=== PATIENT | male | born 1960 | race Caucasian/White ===

== ENCOUNTER 2021-04-27 07:49 | Outpatient (CLI) | payer OTHER, SELFPAY ==
--- NOTE | 2021-04-27 08:11 | CT_ITS ---
WS: [id number] CT scan of the chest without IV contrast, additional two-dimensional coronal and sagittal reconstruct ion was performed. 04/27/2021 Clinical Data: PULMONARY NODULE, SMOKER Comparison: CT chest, 03/21/2009. DLP: 861.[address] scans at [facility] use at least one of these dose optimization techniques: automat ed exposure control; mA and/or kV adjustment per patient size (includes targeted exams where dose is matched to clinical indication); or iterative reconstruction. Findings: No nodules, masses or effusions are seen. The heart size is normal with no pericardial effusion. No p neumonia or pneumothorax is seen. The pulmonary arterial system and thoracic aorta demonstrate no abn ormalities or dilatations. The trachea bifurcates normally into the bronchi. There is minimal axillar y and no significant mediastinal adenopathy. There is a small hiatal hernia. The bones of the thorax are normal. The upper abdomen demonstrates no abnormalities. CT/CT chest wo con [id number] Impression: Negative CT scan of the chest.
== END 2021-04-27 07:50 | disposition home or self-care (01) ==
PROVIDERS: Visit Provider Family Medicine
DX: F17.210 Nicotine dependence, cigarettes, uncomplicated; R91.1 Solitary pulmonary nodule
CPT/HCPCS: 71250

== ENCOUNTER 2021-09-15 16:03 | Emergency (ER) | payer OTHER, SELFPAY ==
[2021-09-15 16:07] VITALS: BP 145/82; PULSE 96; RESP 18; TEMP 38.3; O2SAT 91; BMI 28.0
--- NOTE | 2021-09-15 16:14 | W.ED.GENADLT ---
HPI - General Adult General: Chief complaint: Fever Stated complaint: Cough, Fever, Aches, Pains Time Seen by Provider: 09/15/21 16:13 History of Present Illness: HPI narrative: 61-year-old male with no significant past medical history presenting to the emergency room with 1 day of diarrhea and cough. Patient tells me that she was traveling to [place] when he first developed cough yesterday. Patient has noticed a fever 106 degrees at home. Since then, patient took some OTC antipyretic with improvement to a fever to 101. Patient reports generalized weakness,, denies chest pain, shortness of breath, palpitation, nausea/vomiting, abdominal pain, complaints at this time. Denies any melena or hematochezia. Onset: 1 day ago Duration:1 day Location:home Severity: moderate Review of Systems Narrative: Constitutional: +fever, +chills. HEENT: No vision changes CV: No chest pain, no palpitations PULM: +cough, no dyspnea. GI: No abdominal pain, -N/-V/+D. : No dysuria MSKEL: No muscle pain SKIN: No new rashes, no lesions. NEURO: No headache, no focal weakness. HEME: No visible bruises PSYCH: Normal mood Physical Exam Narrative: EXAM NARRATIVE: Head: Atraumatic Eyes: PERRL, conjunctiva without injection ENT: Mucous membrane moist NECK: Supple, ROM intact LUNGS: LCTAB, no crackles/rhonchi CV: RRR ABDOMEN: Soft, nontender in all quadrants EXTREMITY: Normal ROM SKIN: No rash or erythema NEURO: Awake and alert, no focal motor deficits PSYCH: Normal mood and affect Course Vital Signs: Vital signs: Vital Signs Temperature 99.4 F 09/15/21 18:25 Pulse Rate 72 09/15/21 18:38 Respiratory Rate 15 09/15/21 18:38 Blood Pressure 112/70 09/15/21 18:25 Pulse Oximetry 95 09/15/21 18:38 MDM - General Adult MDM Narrative: Medical decision making narrative: 61-year-old male presenting to the emergency room with cough, diarrhea, fever x1 day. Exam, patient febrile to 101 degrees. Patient has no signs of increased work of breathing, O2 sat within normal limit Workup: CBC, BMP, Covid antigen/PCR, XR chest Intervention: IVF, Tylenol 1gm, observation On reassessment, patient appears to be symptomatically improved after IVF. Fever improved with Tylenol. In the ER, patient tolerated p.o. without difficulty. Covid swab positive. XR negative. Pulse ox wnl. Given patient strict follow-up with PCP. Patient does not criteria for MCA. Patient has a power portable pulse ox at home I have given patient strict return precaution for any signs of respiratory failure, O2 sat less than 90%, or any new concerning complaints. Disposition: Discharge. Patient counseled regarding diagnostic impression, treatment plan. Patient given ED strict return precautions to return for continuation, worsening, or development of new symptoms. Instructed to f/u w/ PCP regarding symptoms today. Patient verbalized understanding. Lab Data: Labs: Lab Results 09/15/21 09/15/21 09/15/21 16:52 16:52 17:00 WBC 8.9 10^3/uL 10^3/ uL (4.0-10.0) RBC 4.43 10^6/uL 10^6 /uL (4.1-5.3) Hgb 13.3 g/dL g/dL (11.7-16.6) Hct 39.5 % L % (42.0-52.0) MCV 89.2 fl fl (80-94) MCH 30.0 pg pg (28.0-34.0) MCHC 33.7 g/dL g/dL (30.0-36.0) RDW 12.4 % % (12.1-15.1) Plt Count 264 10^3/cmm 10^3 /cmm (130-400) MPV 9.7 fL fL (7.4-10.4) Neut % (Auto) 81.1 % % Lymph % (Auto) 10.1 % % Reynolds % (Auto) 7.5 % % Eos % (Auto) 0.6 % % Baso % (Auto) 0.4 % % Neut # (Auto) 7.21 10^3/uL 10^3 /uL (1.8-7.7) Lymph # (Auto) 0.9 10^3/uL 10^3/ uL (0.8-4.8) Reynolds # (Auto) 0.7 10^3/uL 10^3/ uL (0.2-0.9) Eos # (Auto) 0.1 10^3/uL 10^3/ uL (0.0-0.8) Baso # (Auto) 0.0 10^3/uL 10^3/ uL (0.0-0.1) Nucleated RBC % (a uto) 0 % % Nucleated RBCs # 0.0 /100WBC /100W BC Sodium 141 mmol/L mmol/L (136-145) Potassium 3.6 mmol/L mmol/L (3.5-5.1) Chloride 104 mmol/L mmol/L (98-107) Carbon Dioxide 21 mmol/L L mmol/ L (22-29) Anion Gap 19.6 H (5-19) BUN 15 mg/dL mg/dL (8-23) Creatinine 1.1 mg/dL mg/dL (0.7-1.2) GFR Calculation 67.8 mL/min L mL/ min (90-130) Glucose 110 mg/dL mg/dL (65-115) Calculated Osmolal ity 293 mOsm/kg mOsm/ kg (285-295) Calcium 8.2 mg/dL L mg/dL (8.5-10.5) Nasal/Oral COVID-1 9 PCR Influenza Type A A g Negative (Negative) Influenza Type B A g Negative (Negative) SARS-CoV-2 Ag (Rap id) 09/15/21 09/15/21 17:00 17:00 WBC RBC Hgb Hct MCV MCH MCHC RDW Plt Count MPV Neut % (Auto) Lymph % (Auto) Reynolds % (Auto) Eos % (Auto) Baso % (Auto) Neut # (Auto) Lymph # (Auto) Reynolds # (Auto) Eos # (Auto) Baso # (Auto) Nucleated RBC % (a uto) Nucleated RBCs # Sodium Potassium Chloride Carbon Dioxide Anion Gap BUN Creatinine GFR Calculation Glucose Calculated Osmolal ity Calcium Nasal/Oral COVID-1 9 PCR Cancelled Influenza Type A A g Influenza Type B A g SARS-CoV-2 Ag (Rap id) Positive H (Negative) Imaging Data^: Other Imaging: Radiologist's impression: [address] [id number] ReportSigned Patient: Scar Lucero AUnit #: [id number]: [id number]#:[id number]/Sex: 61 / MADM Date: 09/15/21Loc: ERRoom/Bed:Attending Dr: Ordering Provider/Ordering MD: Miles Steele MD Date of Service: 09/15/21 Procedure(s): XR chest 1V portable [id number] Accession Number(s): [id number] Report Number: [id number] PROCEDURE INFORMATION: Exam: XR Chest Exam date and time: 09/15/2021 4:23 PM Age: 61 years old Clinical indication: Dyspnea TECHNIQUE: Imaging protocol: XR of the chest. Views: 1 view. COMPARISON: CT chest [facility] [id number] 04/27/2021 8:18 AM FINDINGS: Lungs: Unremarkable. No consolidation. Pleural spaces: Unremarkable. No pleural effusion. No pneumothorax. Heart/Mediastinum: Unremarkable. No cardiomegaly. Bones/joints: Unremarkable. XR/XR chest 1V portable [id number] IMPRESSION: No acute findings. Radiation Dose CTDIVOL = (mGy): DLP = (mGy-cm) Dictated By:Jeremy Alas MDSigned By:Jeremy Alas MDSigned Date/Time:09/15/21 1833DD/ 1623 Discharge Plan Discharge Patient Disposition: Home Clinical Impression: Cough, Diarrhea Condition: Stable Prescriptions: New acetaminophen 500 mg tablet 500 mg PO Q6H PRN (Reason: pain) 5 Days Qty: 20 RF: 0 Discharge Orders: Discharge ED (Routine); Ordered 09/15/21 Ordered By: Miles Steele Referrals: Jimenez Mullins MD [Primary Care Provider] - Discharge Diet: Advance as tolerated Discharge Activity: Resume usual activity Patient Instructions: COVID-19 (Coronavirus Disease 2019) (ED) Activity Restrictions/Additional Instructions: Come back to the emergency room if your symptoms worsen, have any shortness of breath, fever/chills, dehydration, inability tolerate p.o., any difficulty breathing, or any new or concerning complaints. Coding Level of Care Code ED Weighing Station Operator for Tiffanie Woodruff
--- NOTE | 2021-09-15 16:23 | XRR_ITS ---
PROCEDURE INFORMATION: Exam: XR Chest Exam date and time: 09/15/2021 4:23 PM Age: 61 years old Clinical indication: Dyspnea TECHNIQUE: Imaging protocol: XR of the chest. Views: 1 view. COMPARISON: CT chest con [id number] 04/27/2021 8:18 AM FINDINGS: Lungs: Unremarkable. No consolidation. Pleural spaces: Unremarkable. No pleural effusion. No pneumothorax. Heart/Mediastinum: Unremarkable. No cardiomegaly. Bones/joints: Unremarkable. XR/XR chest 1V portable [id number] IMPRESSION: No acute findings. Radiation Dose CTDIVOL = (mGy): DLP = (mGy-cm)
[2021-09-15] MEDS: sodium chloride 0.9% 1,000 ML 999 ML IV (16:59)
[2021-09-15] MEDS: acetaminophen 500 mg Tablet 1000 MG PO (17:00)
[2021-09-15 17:01] VITALS: BP 122/74; PULSE 82; RESP 16; O2SAT 93
[2021-09-15 17:10] LABS: Basophils % 0.4 %; Eosinophils # 0.1 10^3/uL (0.0-0.8); Eosinophils % 0.6 %; Hematocrit 39.5 % (42.0-52.0); Hemoglobin 13.3 g/dL (11.7-16.6); Lymphocytes # 0.9 10^3/uL (0.8-4.8); Lymphocytes % 10.1 %; Mean Corpuscular HGB Conc 33.7 g/dL (30.0-36.0); Mean Corpuscular Volume 89.2 fl (80-94); Mean Platelet Volume 9.7 fL (7.4-10.4); Monocytes # 0.7 10^3/uL (0.2-0.9); Monocytes % 7.5 %; Neutrophils # 7.21 10^3/uL (1.8-7.7); Neutrophils % 81.1 %; Nucleated Red Blood Cells % 0 %; Platelet Count 264 10^3/cmm (130-400); Red Blood Count 4.43 10^6/uL (4.1-5.3); Red Cell Distribution Width 12.4 % (12.1-15.1); White Blood Count 8.9 10^3/uL (4.0-10.0)
[2021-09-15 17:31] LABS: Anion Gap 19.6 (5-19); Blood Urea Nitrogen 15 mg/dL (8-23); Calcium 8.2 mg/dL (8.5-10.5); Carbon Dioxide 21 mmol/L (22-29); Chloride 104 mmol/L (98-107); Glomerular Filtration Rate 67.8 mL/min (90-130); Glucose 110 mg/dL (65-115); Osmolality Calculated 293 mOsm/kg (285-295); Potassium 3.6 mmol/L (3.5-5.1); Sodium 141 mmol/L (136-145)
[2021-09-15 18:09] LABS: Influenza A by IFA Negative (Negative); Influenza B by IFA Negative (Negative); SARS Covid-2 Antigen Positive (Negative)
[2021-09-15 18:25] VITALS: BP 112/70; PULSE 72; RESP 16; TEMP 37.4; O2SAT 94
[2021-09-15 18:38] VITALS: PULSE 72; RESP 15; O2SAT 95
== END 2021-09-15 18:40 | disposition home or self-care (01) ==
PROVIDERS: Emergency Provider Emergency Medicine; PCP Family Medicine
DX: U07.1 COVID-19 (principal)
CPT/HCPCS: 71045; 80048; 85025; 87426; 87804; 96360; 99283; J7030

== ENCOUNTER 2021-09-19 11:28 | Outpatient (CLI) | payer OTHER, SELFPAY ==
[2021-09-19 12:08] VITALS: BP 128/74; PULSE 50; RESP 18; TEMP 36.7; O2SAT 96; BMI 28.0
[2021-09-19 12:22] VITALS: BP 113/72; PULSE 49; RESP 18; TEMP 36.5; O2SAT 98
[2021-09-19 13:30] VITALS: BP 127/81; PULSE 52; RESP 18; TEMP 36.7
--- NOTE | 2021-09-19 13:31 | PC.NURSE ---
patient denies shortness of breath, bilateral lung sounds clear.
== END 2021-09-19 11:29 | disposition home or self-care (01) ==
PROVIDERS: PCP Family Medicine; Visit Provider Family Medicine
DX: U07.1 COVID-19 (principal)
CPT/HCPCS: 96365

== ENCOUNTER → 2022-10-24 15:33 | Outpatient (BNVA) | payer OTHER, SELFPAY | PROVIDERS: PCP Family Medicine; Visit Provider Nurse Practitioner Family | DX: J11.1 Influenza due to unidentified influenza virus with other respiratory manifestations (principal) | CPT/HCPCS: 87400; 87426 ==

== ENCOUNTER → 2022-12-19 08:50 | Outpatient (BNVA) | payer OTHER, SELFPAY | PROVIDERS: PCP Family Medicine; Visit Provider Family Medicine | DX: R06.00 Dyspnea, unspecified (principal); Z00.00 Encounter for general adult medical examination without abnormal findings; Z87.891 Personal history of nicotine dependence; R35.0 Frequency of micturition | CPT/HCPCS: 80053; 80061; 84153 ==

== ENCOUNTER → 2023-01-13 14:43 | Outpatient (BNVA) | payer OTHER, SELFPAY | PROVIDERS: PCP Family Medicine; Visit Provider Family Medicine | DX: L98.9 Disorder of the skin and subcutaneous tissue, unspecified (principal) | CPT/HCPCS: 88304 ==

== ENCOUNTER 2023-01-23 06:37 | Outpatient (CLI) | payer OTHER, SELFPAY ==
[2023-01-23 06:43] VITALS: BMI 27.4
--- NOTE | 2023-01-23 06:43 | ECG_ITS ---
[facility] Test Date: 2023-01-23 Pat Name: Scar Lucero Department: Room: Gender: Male Sole Buffer: Mallory Valero : 1960 Requested By: Jimenez Cartagena Order Number: [id number] MD: Cullen Mcadams M.D. Interpretive Statements NAME OF STUDY: EXERCISE SESTAMIBI STRESS TEST INDICATION: [Dyspnea on Exertion, ] EXERCISE DATA: The patient was exercised by Andrew protocol. Baseline heart rate was 44 beats per minute. Baseline blood pressure was 118/65 millimeters of mercury. Target heart rate was 133 beats per minute. Maximum heart rate achieved was 138, which was 103% of the target heart rate. Maximum blood pressure was 199/92 millimeters of mercury. Total exercise time was 11 minutes 43 seconds. Maximum METs achieved was 8013.5. The reason for ending the test was maximal effort achieved. The patient complained of shortness of breath during the stress test, which then resolved at the end of the test. ELECTROCARDIOGRAM: BASELINE: Showed sinus rhythm, normal axis, no significant ST-T changes at the baseline noted. [] EXERCISE: At the peak exercise level, [] No significant ST-T changes suggestive of ischemia noted. [] RECOVERY: During the recovery period, heart rate dropped appropriately. No significant ST-T changes in the recovery suggestive of ischemia noted. [] CONCLUSION: 1. Exercise capacity excellent 2. Heart rate response was appropriate 3. Blood pressure response was appropriate 4. Symptoms not suggestive of ischemia. 5. Electrocardiogram portion of the stress test was not suggestive of ischemia. 6. Nuclear scan will be documented separately. Electronically Signed On 02-08-2023 12:47:45 CDT by Cullen Mcadams M.D. [id number]
--- NOTE | 2023-01-23 06:44 | NMCV_ITS ---
NM carol perf SPECT r/s* [id number] Scar Lucero Age: 62 Gender: M : 1960 Exam Date: 01/23/2023 06:44 Ordering Phys: Jimenez Mullins MD Technologist: YESSENIA [place] Exam Location: [facility] Indications: SHORTNESS OF BREATH STRESS TEST Please see separate stress test report in [facility] for full findings IMAGE PROTOCOL Rest/Stress 1 Exercise Day Radiopharmaceutical Dose (mCi) Administration Site Administered by Rest: Tc-99m 10.6 IV YESSENIA Theodore Sestamibi Stress:Tc-99m 32.5 IV YESSENIA Theodore Sestamibi Rest: 23-Jan-2023 60 Discovery 630 Stress: 23-Jan-2023 30 Discovery 630 Images obtained in supine and prone position. Radiopharmaceutical was injected at 85 % maximum heart rate. SPECT RESULTS Technical Quality: Excellent Raw Data Analysis: Normal Image Corrections: No attenuation or motion correction applied Summed Stress Score: 6 Summed Rest Score: 7 Summed Difference Score: 3 PERFUSION FINDINGS There is a medium sized, fixed perfusion defect noted in apical, apical inferior and inferolateral bass. 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 No significant ischemia seen. FUNCTIONAL RESULTS (calculated via Gated SPECT) Stress Image LV EF (%): 67 Stress EDV (mL):117 TID: 0.94 Stress ESV (mL):39 FUNCTIONAL FINDINGS: There is normal left ventricular systolic function. IMPRESSIONS 1. 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 No evidence of ischemia. 2. LV systolic function is normal Cullen Mcadams MD (Electronically Signed) Final Date: 24 January 2023 16:39 S
[2023-01-23 08:50] VITALS: BP 134/72; PULSE 67
== END 2023-01-23 06:38 | disposition home or self-care (01) ==
PROVIDERS: PCP Family Medicine; Visit Provider Family Medicine
DX: R06.09 Other forms of dyspnea (principal)
CPT/HCPCS: 36415; 78452; 93017; A9500

== ENCOUNTER 2023-02-25 13:14 | Outpatient (CLI) | payer OTHER, SELFPAY ==
--- NOTE | 2023-02-25 13:30 | USCV_ITS ---
Scar Lucero Age: 62 Gender: M : 1960 Exam Date: 02/25/2023 13:27 Ordering Phys: Jimenez Mullins MD Technologist: Exam Location: [facility] [place] Indication: abn stress test BP: 124 / 78 HR: 49 Rhythm: Sinus Technical Quality: Adequate MEASUREMENTS (Male / Female) Normal Values 2D ECHO LV Diastolic Diameter PLAX 5.9 cm 4.2 - 5.9 / 3.9 - 5.3 cm LV Systolic Diameter PLAX 4.2 cm IVS Diastolic Thickness 0.8 cm 0.6 - 1.0 / 0.6 - 0.9 cm IVS Systolic Thickness 1.5 cm LVPW Diastolic Thickness 1.2 cm 0.6 - 1.0 / 0.6 - 0.9 cm LVPW Systolic Thickness 1.5 cm LVOT Diameter 2.1 cm LV Ejection Fraction 2D Teich 54.4 % LV Ejection Fraction MOD 2C 75.3 % LV Ejection Fraction 2C AL 75.1 % LA Diameter 3.8 cm LA Width 4.0 cm LA Height 3.6 cm RA Width 3.2 cm RA Height 4.7 cm Aorta at Sinotubular Diameter 2.8 cm IVC Diameter 1.4 cm M-MODE Aortic Annulus Diameter 3.4 cm LA Ao Ratio MM 1.2 MV E Point Septal Separation 0.6 cm DOPPLER AV Peak Velocity 180.0 cm/s LVOT Peak Velocity 113.0 cm/s AV Area Cont Eq vti 1.9 cm squared AV Area Cont Eq pk 2.2 cm squared MV Peak Velocity 107.0 cm/s MV Area PHT 4.4 cm squared Mitral E to A Ratio 1.5 MV E' Velocity 57.0 cm/s Mitral E to MV E' Ratio 7.8 Mitral E to LV E' Lateral Ratio 6.7 Mitral E to LV E' Septal Ratio 9.4 TR Peak Velocity 122.0 cm/s TR Peak Gradient 6.0 mmHg TV Peak E Velocity 85.0 cm/s PV Peak Velocity 104.0 cm/s FINDINGS Left Ventricle Normal left ventricular size, systolic function and wall thickness, with no regional wall motion abnormalities. Normal left ventricular wall thickness. Normal diastolic filling pattern. Left ventricular ejection fraction is estimated at 60 %. Right Ventricle The right ventricle is normal in size and function. Right Atrium The right atrium is normal in size. Left Atrium The left atrium is normal in size. Mitral Valve Structurally normal mitral valve. Mild mitral valve regurgitation. Aortic Valve Structurally normal aortic valve without significant sclerosis or stenosis. There is no aortic regurgitation. Tricuspid Valve Structurally normal tricuspid valve without significant stenosis or regurgitation. Pulmonary artery systolic pressure is normal. Pulmonic Valve Pulmonic valve not well visualized. Pericardium Normal pericardium without effusion. Aorta Normal ascending aorta dimension. IVC The inferior vena cava appears normal. CONCLUSIONS Normal left ventricular size, systolic function and wall thickness, with no regional wall motion abnormalities. Normal left ventricular wall thickness. Normal diastolic filling pattern. Left ventricular ejection fraction is estimated at 60 %. Structurally normal mitral valve. Mild mitral valve regurgitation. There are no prior echocardiogram studies to compare. Dr. Juan Craven MD (Electronically Signed) Final Date: 25 Feb 2023 18:18 S
== END 2023-02-25 13:15 | disposition home or self-care (01) ==
LOC: RAD 13:17
PROVIDERS: PCP Family Medicine; Visit Provider Family Medicine
DX: R07.9 Chest pain, unspecified (principal)
CPT/HCPCS: 93306

== ENCOUNTER 2023-10-22 07:51 | Outpatient (CLI) | payer OTHER, SELFPAY ==
[2023-10-22 08:10] VITALS: PULSE 52; RESP 18; O2SAT 99
[2023-10-22 08:14] VITALS: PULSE 49
[2023-10-22] MEDS: albuterol 2.5 mg/3 mL Neb INHALATION (08:14)
== END 2023-10-22 07:52 | disposition home or self-care (01) ==
LOC: RT 07:51
PROVIDERS: PCP Family Medicine; Visit Provider Nurse Practitioner Family
DX: R06.02 Shortness of breath (principal)
CPT/HCPCS: 94060; 94726; 94729; J7613

== ENCOUNTER → 2024-11-10 08:45 | Outpatient (BNVA) | payer MEDICARE, SELFPAY | PROVIDERS: PCP Family Medicine; Visit Provider Family Medicine | DX: Z00.00 Encounter for general adult medical examination without abnormal findings (principal); R07.9 Chest pain, unspecified | CPT/HCPCS: 80053; 80061 ==

== ENCOUNTER → 2024-11-19 11:47 | Outpatient (BNVA) | payer MEDICARE, SELFPAY | PROVIDERS: PCP Family Medicine; Visit Provider Family Medicine | DX: R35.0 Frequency of micturition (principal) | CPT/HCPCS: 84153 ==

== ENCOUNTER → 2024-12-22 14:13 | Outpatient (BNVA) | payer MEDICARE, SELFPAY | PROVIDERS: PCP Family Medicine; Visit Provider Internal Medicine Cardiovascular Disease | DX: R00.1 Bradycardia, unspecified (principal); I95.9 Hypotension, unspecified; J44.9 Chronic obstructive pulmonary disease, unspecified; Z87.898 Personal history of other specified conditions; Z87.891 Personal history of nicotine dependence | CPT/HCPCS: 99204 ==